=== PATIENT | female | born 1960 | race Caucasian/White ===

== ENCOUNTER → 2016-08-06 | Outpatient (CLI) | payer BC ==
[~2016-08-06] MED LIST: ASP81TEC PO; CALC-794 PO; CHOL20003 PO; CYAN500T52 SL; DCS100C PO; FURO-125 PO; HYDR-34 PO; IBP600T1 PO; MELO-198 PO; METO-272 PO; MTP25TSR PO; OMG1KC PO; POTA10TA PO; PRAV40TA2 PO
--- OUTSIDE RECORDS SUMMARY | 2016-08-06 11:50 | XMS REPORT | Continuity of Care Document ---
Author Author [facility] Organization [facility] Address Unknown Phone Unavailable Care Team Providers Care Counter Cutter Name Role Phone Darlene Ramirez PCP [phone] Source Comments Some departments are not documenting in the electronic medical record. If you do not see the information that you expected, contact Release of Information in the Health Information Management department at [phone] for further assistance in locating additional records.[facility] Active Allergies and Adverse Reactions No Known Allergies Current Medications Prescription Sig. Disp. Refills Start End Date Status Date meloxicam(+) (MOBIC) 15 Take 15 mg by mouth Active mg tablet daily. Indications: 15mg one day, 7.5mg the following day aspirin EC 81 mg tablet Take 81 mg by mouth at Active bedtime daily. calcium carbonate/vitamin Take 1 Tab by mouth Active D-3 (OSCAL-500+D) 1250 daily. Calcium Carb mg/200 unit tablet 1250mg delivers 500mg elemental Ca senna/docusate 1 Tab twice daily. 60 Tab 3 08/01/19 Active (SENOKOT-S) 8.6/50 mg 14 tablet metoprolol XL (TOPROL XL) Take 25 mg by mouth Active 25 mg tablet daily. ERGOCALCIFEROL (VITAMIN Take by mouth. Active D2) (VITAMIN D PO) cyanocobalamin(+) Take 3,000 mcg by mouth Active (VITAMIN B-12) 100 mcg every other day as tablet needed. fish oil /omega-3 fatty Take 1 Cap by mouth Active acids (SEA-OMEGA) daily. 340/1000 mg capsule pravastatin (PRAVACHOL) Take 40 mg by mouth at Active 40 mg tablet bedtime daily. Active Problems Problem Noted Date Ovarian cancer (HCC) 07/28/2013 Overview: Ms. 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 1. The patient initially identified with a left adnexal complex cyst measuring about 4 cm and was recommended to have a repeat ultrasound. She did not follow up for some time but finally underwent repeat ultrasound in April 2013, which indicated that the adnexal mass had increased in size to a maximum diameter of 6 cm. 2. She underwent a laparoscopic hysterectomy and bilateral salpingo-oophorectomy on May 28, 2013. 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 The pelvic washings were also obtained at the time of surgery and showed involvement by a serous borderline tumor. The patient was then referred to [place]. 3. On July 28, 2013, the patient underwent an exploratory laparotomy, extensive lysis of adhesions, radical peritonectomy involving removal of the peritoneum representing left and right pelvic sidewalls as well as the anterior rectal serosa, bilateral periaortic lymphadenectomy, omentectomy, and additional biopsies to complete staging. At that time, Dr. Barlow performed a ventral hernia repair and Meckel's diverticulectomy. Pathology revealed no residual malignancy. Seven lymph nodes were sampled, all of which were negative. 4. The patient returns today, 07/25/2016 Now just over 3 years CAPRI. She was last seen in 06/2015, and now presents for her yearly continued surveillance. Last CA-125 on 07/25/2015=10 , according to pt CA 125 was normal in march Last Mammogram 04/2014: Normal per pt Last Colonoscopy Spring 2013: Small polyp found FH/O mother had gynecological cancer, PGM had breast cancer, cousin had endometrial L ast Assessment & Plan: She is clinically CAPRI; now at 3 years from surgery. PLAN: RV q 12 months with CA125. Genetic testing? Her pgm had/has breast cancer After 5 years, have follow up with Dr. Rivera only. Alternating visits currently. Most Recent Encounters Date Type Specialty Providers Description 07/31/2016 Telephone Oncology Maksim Bazzi, [facility] [place] Appointment Request 07/25/2016 Office Visit Oncology Jossy Boggs MD Ovarian cancer, unspecified laterality (Primary Dx) 07/25/2016 Orders Only Oncology Jossy Boggs MD Malignant neoplasm of ovary, unspecified laterality (Primary Dx) Social History Tobacco Use Types Packs/Day Years Used Date Former Smoker Cigarettes 1.5 13.5 Quit: 06/30/1998 Smokeless Tobacco: Never Used Alcohol Use Drinks/Week oz/Week Comments Yes 1-2 drinks/month Last Filed Vital Signs Vital Sign Reading Time Taken Blood Pressure 179/89 07/25/2016 12:12 PM RADIOLOGIC TECHNICIAN Pulse 66 07/25/2016 12:12 PM RADIOLOGIC TECHNICIAN Temperature 36.7 C (98 F) 07/25/2016 12:12 PM RADIOLOGIC TECHNICIAN Respiratory Rate 16 07/25/2016 12:12 PM RADIOLOGIC TECHNICIAN Height 1.6 m (5' 2.99") 07/25/2016 12:12 PM RADIOLOGIC TECHNICIAN Weight 104.599 kg (230 lb 9.6 07/25/2016 12:12 PM RADIOLOGIC TECHNICIAN oz) Body Mass Index 40.86 07/25/2016 12:12 PM RADIOLOGIC TECHNICIAN Oxygen Saturation 94% 07/25/2016 12:12 PM RADIOLOGIC TECHNICIAN Plan of Care Date Type Specialty Providers Description 11/07/2016 Appointment Oncology Jovita rGegory, MS [facility] [address] [place] [address] [phone] (Fax) 11/07/2016 Appointment Oncology 12/10/2016 Appointment Oncology Jovita Gregory, MS [facility] [address] [place] [address] [phone] (Fax) 07/24/2017 Appointment Oncology 07/24/2017 Appointment Oncology Bhakti Finnegan APRN [address] [place] [address] [phone] (Fax) Health Maintenance Due Date Last Done Comments Hepatitis C Screening 1960 Physical (Comprehensive) 09/01/1967 Exam Pertussis Vaccine 09/01/1971 Tetanus Vaccine 1977 Cervical Cancer Screening 1981 Breast Cancer Screening 2000 Colorectal Cancer 2010 Screening Influenza Vaccine 02/29/2016 Results from Last 3 Months CA125 (07/25/2016 11:10 AM) Component Value Range CA-125 10 <35 U/ml Specimen Blood
--- NOTE | 2016-08-09 07:03 | ECHOCARDIOGRAPHY REPORT ---
PROCEDURE PHYSICIAN: KRISTINA CARDOZO DATE OF PROCEDURE: 08/06/2016 TWO DIMENSIONAL ECHOCARDIOGRAM REPORT PRIMARY PHYSICIAN: Dr. Ramirez OTHER PHYSICIAN: REFERRING PHYSICIAN: ORDERING PHYSICIAN: Dr. Ramirez INDICATION FOR THE PROCEDURE: Cardiac murmur, hypertension MEASUREMENTS DERIVED VALUES LV DIAMETER (LAX) NORMALS NORMALS Diastolic 5.4 (3.6-5.2) Eject. Fract. (60%+/-6%) Systolic (2.3-3.9) Diastolic Vol. % Shortening (0.22-0.42) Systolic Vol. Aortic Root 2.8 IVS THICKNESS Diastolic 1.1 (0.6-1.1) LVPW THICKNESS Diastolic (0.6-1.1) LA DIAMETER Systolic 5.5 (2.1-3.7) DESCRIPTION: 2-dimension echocardiography shows normal global left systolic function with normal regional wall motion. Aortic, mitral and tricuspid valve leaflets show good leaflet excursion. There appears to be moderate prolapse of the posterior mitral leaflet. 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 Doppler imaging shows mild tricuspid. There is an eccentric jet of moderate to severe mitral regurgitation. There is no Doppler evidence of significant valvular stenosis. Pulmonary artery systolic pressure is estimated to be approximately 25 to 30 mmHg. There is no evidence of significant intracardiac shunt on this transthoracic echocardiographic study. Inferior vena cava is of normal size and exhibits inspiratory collapse. CONCLUSION: 1. 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 2. Mild enlargement of the left ventricle. 3. Moderate to severe enlargement of the left atrium. 4. No evidence of significant valvular stenosis. 5. Pulmonary artery systolic pressure is estimated to be 25 to 30 mmHg. 6. Job ID: [id number] Dictated Date: 08/08/2016 11:15:53 Marine Engineering Professor Date: 08/09/2016 06:53:56 / rhonda
== END ==
LOC: CARD 11:47
PROVIDERS: ATTEND Family Medicine
DX: I10 Essential (primary) hypertension (principal); R01.1 Cardiac murmur, unspecified
CPT/HCPCS: 93306

== ENCOUNTER 2016-08-16 02:49 | Observation (INO) | payer BC ==
[~2016-08-16] VITALS: Ht 162.6 cm; Wt 101.6 kg
[~2016-08-16 02:49] MED LIST changes: -CHOL20003 PO; -CYAN500T52 SL; -FURO-125 PO; -METO-272 PO; -POTA10TA PO; -PRAV40TA2 PO
--- OUTSIDE RECORDS SUMMARY | 2016-08-16 02:56 | XMS REPORT | Continuity of Care Document ---
Author Author [facility] Organization [facility] Address Unknown Phone Unavailable Care Team Providers Care Commercial Trailer Truck Driver Name Role Phone Darlene Ramirez PCP [phone] Source Comments Some departments are not documenting in the electronic medical record. If you do not see the information that you expected, contact Release of Information in the Health Information Management department at [phone] for further assistance in locating additional records.[facility] Active Allergies and Adverse Reactions No Known [...] tumor. The patient was then referred to [place] for staging. 3. On July 28, 2013, [...] Providers Description 07/31/2016 Telephone Oncology Maksim Bazzi, [facility] [place]oint[place] Request 07/25/2016 Office Visit Oncology Jossy [...] Taken Blood Pressure 179/89 07/25/2016 12:12 PM FARM HELPER Pulse 66 07/25/2016 12:12 PM FARM HELPER Temperature 36.7 C (98 F) 07/25/2016 12:12 PM FARM HELPER Respiratory Rate 16 07/25/2016 12:12 PM FARM HELPER Height 1.6 m (5' 2.99") 07/25/2016 12:12 PM FARM HELPER Weight 104.599 kg (230 lb 9.6 07/25/2016 12:12 PM FARM HELPER oz) Body Mass Index 40.86 07/25/2016 12:12 PM FARM HELPER Oxygen Saturation 94% 07/25/2016 12:12 PM FARM HELPER Plan of Care Date Type Specialty Providers Description 11/07/2016 Appointment Oncology Jovita Gregory, MS [facility] [address] [place] [address] [phone] (Fax) 11/07/2016 Appointment Oncology 12/10/2016 Appointment Oncology Jovita Gregory, MS [facility] [address] [place] [address] [phone] (Fax) 07/24/2017 Appointment Oncology 07/24/2017 Appointment Oncology Bhakti Finnegan APRN [address] [place] [address] [phone] (Fax) Health Maintenance Due Date Last Done Comments Hepatitis C Screening 1960 Physical (Comprehensive) 09/01/1967 Exam Pertussis Vaccine 09/01/1971 Tetanus Vaccine 1977 Cervical Cancer Screening 1981 Breast Cancer Screening 2000 Colorectal Cancer 2010 Screening Influenza Vaccine 02/29/2016 Results from Last 3 Months CA125 (07/25/2016 11:10 AM) Component Value Range CA-125 10 <35 U/ml Specimen Blood
[2016-08-16] MEDS ORDERED: ASPIRIN 81 MG CHEW (CHILDREN'S ASA) PO ONE (03:00)
[2016-08-16] MEDS ORDERED: RX-NITROGLYCERIN 0.4 MG TAB BTL 25'S SL PRN (03:00)
[2016-08-16 03:10] LABS: BASOPHILS % (AUTO) 1 % (0-10); EOSINOPHILS # (AUTO) 0.2 10^3/uL (0.0-0.3); EOSINOPHILS % (AUTO) 3 % (0-10); LYMPHOCYTES # (AUTO) 2.6 X 10^3 (1.0-4.0); LYMPHOCYTES % (AUTO) 43 % (12-44); MEAN CORPUSCULAR HEMOGLOBIN 31 PG (25-34); MEAN CORPUSCULAR HGB CONC 35 G/DL (32-36); MEAN CORPUSCULAR VOLUME 91 FL (80-99); MEAN PLATELET VOLUME 8.9 FL (7.4-10.4); MONOCYTES # (AUTO) 0.7 X 10^3 (0.0-1.0); MONOCYTES % (AUTO) 12 % (0-12); NEUTROPHILS # (AUTO) 2.6 X 10^3 (1.8-7.8); NEUTROPHILS % (AUTO) 42 % (42-75); PLATELET COUNT 243 10^3/uL (130-400); RED BLOOD COUNT 4.83 10^6/uL (4.35-5.85); WHITE BLOOD COUNT 6.2 10^3/uL (4.3-11.0)
[2016-08-16 03:30] LABS: INR 0.9 (0.8-1.4); PROTHROMBIN TIME PATIENT 12.3 SEC (12.2-14.7)
[2016-08-16 03:42] LABS: ALANINE AMINOTRANSFERASE 20 U/L (0-55); ALBUMIN 4.3 G/DL (3.2-4.5); AMYLASE 72 U/L (25-125); ANION GAP 11 MMOL/L (5-14); ASPARTATE AMINO TRANSFERASE 23 U/L (5-34); BILIRUBIN,TOTAL 0.3 MG/DL (0.1-1.0); BLOOD UREA NITROGEN 25 MG/DL (7-18); BUN/CREATININE RATIO 33; CARBON DIOXIDE 23 MMOL/L (21-32); CHLORIDE 108 MMOL/L (98-107); CREATINE KINASE 80 U/L (29-168); CREATININE SERUM 0.76 MG/DL (0.60-1.30); GFR ESTIMATED > 60; GLUCOSE 98 MG/DL (70-105); LIPASE 85 U/L (8-78); MAGNESIUM 2.4 MG/DL (1.8-2.4); POTASSIUM 3.9 MMOL/L (3.6-5.0); SODIUM 142 MMOL/L (135-145); TOTAL PROTEIN 6.9 G/DL (6.4-8.2)
[2016-08-16 03:50] LABS: TROPONIN I < 0.30 NG/ML (<0.30)
[2016-08-16] MEDS ORDERED: NS 100 ML (IVPB) BAG IV ONE (04:45)
[2016-08-16] MEDS ORDERED: IOHEXOL 350 MG/ML 150 ML (OMNIPAQUE 350) VIAL IV ONE (04:45)
--- NOTE | 2016-08-16 05:23 | ED Chest Pain ---
General Chief Complaint: Chest Pain Stated Complaint: CHEST TIGHTNESS,ACID REFLUX,CAN'T SLEEP ON SIDE Nursing Triage Note: PT TO ED 6 W/ C/O CHEST PAIN ONSET YESTERDAY, WORSE THIS AM. REPORTS RECENT DX OF MITRAL VALVE REGURGITATION. THINKS PAIN R/T ANXIETY. NO OTHER C/O VOICED AT THIS TIME. Nursing Sepsis Screen: No Definite Risk Source: patient History of Present Illness Time seen by provider: 02:50 Initial Comments PT ARRIVES VIA POV FROM HOME C/O CHEST PAIN/ TIGHTNESS SINCE YESTERDAY STATES PAIN INITIALLY WOULD COME AND GO, BUT HAS BEEN CONSTANT ALL DAY TODAY AND IS WORSE TONIGHT AND CANNOT SLEEP DUE TO PAIN --RATES PAIN 3/10 AT WORST AND IS 2/10 NOW PAIN IS WORSE WITH LAYING FLAT, IMPROVES WITH SITTING OR STANDING NO RADIATION OF PAIN HAS HAD PROGRESSIVE DYSPNEA ON EXERTION FOR THE LAST 2 WEEKS NO SWEATS NO NAUSEA NO SWELLING IN FEET/ANKLES OR PAIN IN CALVES NO PALPITATIONS NO HISTORY OF SIMILAR PT WAS DX WITH MITRAL VALVE REGURGITATION LAST FRIDAY AND METOPROLOL DOSE WAS INCREASED LAST WEEK. HAS BEEN REFERRED TO DR. CARDOZO AND HAS AN APPOINTMENT WITH HIM NEXT FRIDAY PCP: DR. PABLO Allergies and Home Medications Allergies Coded Allergies: No Known Drug Allergies (Unverified , 02/08/11) Home Medications Aspirin 81 Mg Tabec 81 MG PO DAILY (Reported) Calcium Carb & Cit/Vitamin D3 1 Each Tablet.er 1 EACH PO DAILY (Reported) Meloxicam 7.5 Mg Tablet 1 EACH PO DAILY (Reported) Metoprolol Succinate 25 Mg Tab 25 MG PO DAILY (Reported) Ambler 3 Polyunsat Fatty Acids 1,000 Mg Cap 1,000 MG PO DAILY (Reported) Review of Systems Constitutional: no symptoms reported EENTM: No Symptoms Reported Respiratory: See HPI SOA With Exertion Cardiovascular: See HPI Chest PainDenies Edema, Denies Irregular Heart Rate, Denies Lightheadedness, Denies Palpitations, Denies Syncope Gastrointestinal: No Symptoms Reported Genitourinary: No Symptoms Reported Musculoskeletal: no symptoms reported Skin: no symptoms reported Psychiatric/Neurological: No Symptoms Reported Endocrine: No Symptoms Reported Hematologic/Lymphatic: No Symptoms Reported Past Dqibktm-Awsxrb-Tbwaij Hx Patient Social History Alcohol Use: Occasionally Uses Recreational Drug Use: No Smoking Status: Former Smoker Former Smoker/When Quit: October 28, 1998 Recent Foreign Travel: No Contact w/Someone Who Travel: No Recent Infectious Disease Expo: No Recent Hopitalizations: No Immunizations Up To Date Date of Influenza Vaccine: May 14, 2013 Surgeries HX Surgeries: Yes (ADRENAL MASS, HYST/BSO FOR OVARIAN CANCER) Surgeries: Hysterectomy, Oophorectomy Respiratory Hx Respiratory Disorders: No Cardiovascular Hx Cardiac Disorders: Yes (MITRAL VALVE REGURGITATION) Cardiac Disorders: Hypertension, Valvular Heart Disease Neurological Hx Neurological Disorders: No Reproductive System Hx Reproductive Disorders: Yes (ADRENAL MASS, ENDOMETRIAL HYPERTROPHY; OVARIAN CANCER) Genitourinary Hx Genitourinary Disorders: Yes Genitourinary Disorders: Bladder Infection Gastrointestinal Hx Gastrointestinal Disorders: No Musculoskeletal Hx Musculoskeletal Disorders: Yes (BACK PAIN) Musculoskeletal Disorders: Chronic Back Pain Endocrine Hx Endocrine Disorders: No HEENT HX ENT Disorders: No Cancer Hx Cancer: Yes (OVARIAN CANCER DX 04/2013--S/P SURGERY ONLY. NO CHEMO 0R RADIATION) Cancer: Ovarian Psychosocial Hx Psychiatric Problems: No Integumentary HX Skin/Integumentary Disorder: No Blood Transfusions Hx Blood Disorders: No Family Medical History Family Medial History: Congestive heart failure 03 FATHER Family history: Glaucoma 03 FATHER Family history: Hypertension 03 MOTHER History of - respiratory disease 03 FATHER Stroke 03 FATHER Physical Exam Vital Signs Vital Sign - Last 12Hours 08/16/16 02:51 Temp 96.8 Pulse 75 Resp 20 B/P 152/103 Pulse Ox 95 O2 Delivery Room Air Capillary Refill : Less Than 3 Seconds General Appearance: No Apparent Distress WD/WN Neck: Full Range of Motion Normal Inspection Non Tender SuppleNo Carotid Bruit , No JVD Respiratory: Chest Non Tender Normal Breath Sounds No Accessory Muscle Use No Respiratory Distress Cardiovascular: Regular Rate, Rhythm No Edema No JVD No Murmur Normal Peripheral Pulses Gastrointestinal: Normal Bowel Sounds No Organomegaly No Pulsatile Mass Non Tender Soft Extremity: Normal Capillary Refill Normal Inspection Normal Range of Motion Non Tender No Calf Tenderness No Pedal Edema Neurologic/Psychiatric: Alert Oriented x3 No Motor/Sensory Deficits Normal 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-XII Norm as Tested Skin: Normal Color Warm/Dry Progress/Results/Core Measures Results/Orders Lab Results Laboratory Tests Test 08/16/16 03:05 Range/Units Activated Partial Thromboplast Time 32 24-35 SEC Alanine Aminotransferase (ALT/SGPT) 20 0-55 U/L Albumin 4.3 3.2-4.5 G/DL Alkaline Phosphatase 116 40-136 U/L Amylase Level 72 25-125 U/L Anion Gap 11 5-14 MMOL/L Aspartate Amino Transf (AST/SGOT) 23 5-34 U/L B-Type Natriuretic Peptide 63.5 <100.0 PG/ML BUN/Creatinine Ratio 33 Basophils # (Auto) 0.0 0.0-0.1 10^3/uL Basophils (%) (Auto) 1 0-10 % Blood Urea Nitrogen 25 H 7-18 MG/DL Calcium Level 9.0 8.5-10.1 MG/DL Carbon Dioxide Level 23 21-32 MMOL/L Chloride Level 108 H 98-107 MMOL/L Creatine Kinase MB 1.5 <6.6 NG/ML Creatinine 0.76 0.60-1.30 MG/DL Eosinophils # (Auto) 0.2 0.0-0.3 10^3/uL Eosinophils (%) (Auto) 3 0-10 % Estimat Glomerular Filtration Rate > 60 Glucose Level 98 70-105 MG/DL Hematocrit 44 35-52 % Hemoglobin 15.1 11.5-16.0 G/DL INR Comment 0.9 0.8-1.4 Lipase 85 H 8-78 U/L Lymphocytes # (Auto) 2.6 1.0-4.0 X 10^3 Lymphocytes (%) (Auto) 43 12-44 % Magnesium Level 2.4 1.8-2.4 MG/DL Mean Corpuscular Hemoglobin 31 25-34 PG Mean Corpuscular Hemoglobin Concent 35 32-36 G/DL Mean Corpuscular Volume 91 80-99 FL Mean Platelet Volume 8.9 7.4-10.4 FL Monocytes # (Auto) 0.7 0.0-1.0 X 10^3 Monocytes (%) (Auto) 12 0-12 % Neutrophils # (Auto) 2.6 1.8-7.8 X 10^3 Neutrophils (%) (Auto) 42 42-75 % Platelet Count 243 130-400 10^3/uL Potassium Level 3.9 3.6-5.0 MMOL/L Prothrombin Time 12.3 12.2-14.7 SEC Red Blood Count 4.83 4.35-5.85 10^6/uL Red Cell Distribution Width 13.0 10.0-14.5 % Sodium Level 142 135-145 MMOL/L Total Bilirubin 0.3 0.1-1.0 MG/DL Total Creatine Kinase 80 29-168 U/L Total Protein 6.9 6.4-8.2 G/DL Troponin I < 0.30 <0.30 NG/ML White Blood Count 6.2 4.3-11.0 10^3/uL My Orders Orders-PEEWEECARLIE Adrianna DO Amylase (08/16/16 02:54) Cbc With Automated Diff (08/16/16 02:54) Comprehensive Metabolic Panel (08/16/16 02:54) Creatine Kinase (08/16/16 02:54) Creatine Kinase Mb (08/16/16 02:54) Lipase (08/16/16 02:54) Partial Thromboplastin Time (08/16/16 02:54) Protime With Inr (08/16/16 02:54) Troponin I (08/16/16 02:54) Chest 1 View, Ap/Pa Only (08/16/16 02:54) O2 (08/16/16 02:54) Ekg Tracing (08/16/16 02:54) Aspirin Chewable Tablet (Baby Aspirin Ch (08/16/16 03:00) Rx-Nitroglycerin Sl Tabs (Rx-Nitrostat S (08/16/16 03:00) BNP (08/16/16 02:54) Monitor-Rhythm Ecg Trace Only (08/16/16 02:54) Magnesium (08/16/16 02:54) Ct Angio Chest W (08/16/16 04:16) Iohexol Injection (Omnipaque 350 Mg/Ml 1 (08/16/16 04:45) Ns (Ivpb) (Sodium Chloride 0.9% Ivpb Bag (08/16/16 04:45) Medications Given in ED Current Medications Medications Dose Ordered Sig/Preston Route Start Time Stop Time Status Last Admin Dose Admin Aspirin 324 mg ONCE ONCE PO 08/16/16 03:00 08/16/16 03:01 DC 08/16/16 03:23 324 MG Iohexol 150 ml ONCE ONCE IV 08/16/16 04:45 08/16/16 04:46 DC 08/16/16 04:44 125 ML Sodium Chloride 100 ml ONCE ONCE IV 08/16/16 04:45 08/16/16 04:46 DC 08/16/16 04:44 80 ML Vital Signs/I&O Vital Sign - Last 12Hours 08/16/16 02:51 Temp 96.8 Pulse 75 Resp 20 B/P 152/103 Pulse Ox 95 O2 Delivery Room Air Blood Pressure Mean: 119 Progress Note : Progress Note PAIN RELIEVED WITH NTG X 1 ECG Initial ECG Impression Time: 03:01 Initial ECG Rate: 68 Initial ECG Rhythm: Normal Sinus Initial ECG Comparisson: No Previous ECG Available Diagnostic Imaging Comments CXR--NO ACUTE PROCESS, PENDING RADIOLOGIST REVIEW CT CHEST ANGIOGRAM--NO ACUTE PROCESS, PER [facility] VIA FAX @ [phone] Reviewed: Reviewed by Me Departure Communication Progress Notes 0505--SPOKE WITH DR. PABLO, ACCEPTS PT FOR ADMIT Impression Impression: Primary Impression: Chest pain Disposition: ADMITTED INPATIENT Condition: Improved Decision to Admit Reason: Admit from ER (General) Decision to Admit/Date: Aug 16, 2016 Time/Decision to Admit Time: 05:05 Departure-Patient Inst. Referrals: LAVON PABLO DO (PCP/Family) Primary Care Physician CARLIE VIDES DO Aug 16, 2016 05:23
[2016-08-16] MEDS ORDERED: NITROGLYCERIN SUBLINGUAL 0.4 MG TAB (NITROSTAT) SL PRN ×2 (06:15)
[2016-08-16] MEDS ORDERED: morphine INJ 10 MG/ML 1ML (SYR OR VIAL) IVP PRN (06:15)
[2016-08-16] MEDS ORDERED: PATIENT MAY USE OWN MEDS, ALL MC SCH (06:15)
[2016-08-16] MEDS ORDERED: CATHETER FLUSH 10 ML SYR IV PRN (06:15)
[2016-08-16] MEDS ORDERED: morphine INJ 4 MG/ML 1 ML (VIAL/SYRINGE) IV PRN (06:15)
--- NOTE | 2016-08-16 06:27 | Diagnostic Imaging Report ---
PROCEDURE: CT angiography of the chest with contrast. TECHNIQUE: Multiple contiguous axial images were obtained through the chest after uneventful bolus administration of intravenous contrast. Reconstructed CTA MIP acquisitions were also performed. INDICATION: Chest pain The lungs are clear. There is no hilar or mediastinal lymphadenopathy. The thoracic aorta is normal. There are no pulmonary emboli. There are no effusions or pneumothoraces. IMPRESSION: Negative CTA chest. I agree with preliminary interpretation. Dictated by: Dictated on workstation # [id number]
--- NOTE | 2016-08-16 06:34 | Diagnostic Imaging Report ---
INDICATION: Chest pain. Portable chest 3:28 AM FINDINGS: Heart size and pulmonary vascularity are normal. Lungs are clear. There are no effusions or pneumothoraces. IMPRESSION: Negative chest. Dictated by: Dictated on workstation # [id number]
[2016-08-16 07:56] VITALS: BP 123/69
[2016-08-16 08:00] VITALS: BP 123/69
[2016-08-16] MEDS ORDERED: CYAN500T52 SL (08:38)
[2016-08-16] MEDS ORDERED: CHOL20003 PO (08:38)
[2016-08-16] MEDS ORDERED: METO-272 PO (08:38)
[2016-08-16] MEDS ORDERED: PRAV40TA2 PO (08:38)
[2016-08-16] MEDS ORDERED: ASPIRIN E.C. 325 MG (ECOTRIN) TABLET PO SCH ×2 (09:00)
[2016-08-16 09:38] LABS: BILIRUBIN,URINE NEGATIVE (NEGATIVE); KETONES,URINE NEGATIVE (NEGATIVE); LEUKOCYTE ESTERASE ,URINE 1+ (NEGATIVE); NITRITE,URINE NEGATIVE (NEGATIVE); PH,URINE 8 (5-9); PROTEIN,URINE NEGATIVE (NEGATIVE); UROBILINOGEN,URINE NORMAL (NORMAL)
[2016-08-16 09:53] LABS: SQUAMOUS EPITHELIAL CELL,UR 0-2 /HPF; WBC,URINE 0-2 /HPF
[2016-08-16 10:14] LABS: MYOGLOBIN SERUM 29.7 NG/ML (10.0-92.0)
--- NOTE | 2016-08-16 10:34 | History & Physicial ---
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 She stated she had substernal chest pressure intermittently since the day before but last night it awakened her from sleep and it was radiating to her left neck. She also reported shortness of air with exertion the last 2 days. She did report possible heartburn symptoms as well and wondered if some of her symptoms were due to anxiety over her recent mitral valve diagnosis. In the emergency room, her EKG showed no acute changes and her cardiac enzymes were negative but her pain did improve with nitro so it was decided to admit her for cardiac evaluation. Date of Admission Aug 16, 2016 at 05:05 I consulted on this patient on 08/16/16 10:28 Attending Physician Darlene Ramirez DO Admitting Physician Darlene Ramirez DO Consult Allergies and Home Medications Allergies Coded Allergies: No Known Drug Allergies (Unverified , 02/08/11) Home Medications Aspirin 81 Mg Tabec 81 MG PO DAILY (Reported) Calcium Carb & Cit/Vitamin D3 1 Each Tablet.er 1 TAB PO DAILY (Reported) Cholecalciferol (Vitamin D3) 2,000 Unit Capsule 2,000 UNIT PO DAILY (Reported) Cyanocobalamin (Vitamin B-12) 500 Mcg Tab.subl 500 MCG SL Q48H (Reported) Meloxicam 7.5 Mg Tablet 7.5 MG PO DAILY (Reported) Metoprolol Succinate 50 Mg Tab.er.24h 50 MG PO DAILY (Reported) Pravastatin Sodium 40 Mg Tablet 40 MG PO DAILY (Reported) Past Hxvvctv-Mptkdm-Hrpzaw Hx Patient Social History Marrital Status: Employed/Student: employed Alcohol Use: Occasionally Uses Recreational Drug Use: No Smoking Status: Former Smoker Former smoker/When Quit: October 28, 1998 Physical Abuse Screen: No Sexual Abuse: No Recent Foreign Travel: No Contact w/other who traveled: No Recent Hopitalizations: No Recent Infectious Disease Expo: No Immunizations Up To Date Date of Influenza Vaccine: May 14, 2016 Seasonal Allergies Seasonal Allergies: No Surgeries HX Surgeries: Yes (ADRENAL MASS, HYST/BSO FOR OVARIAN CANCER) Surgeries: Hysterectomy, Oophorectomy Respiratory Hx Respiratory Disorders: No Cardiovascular Hx Cardiovascular Disorders: Yes (MITRAL VALVE REGURGITATION) Cardiac Disorders: Hypertension, Valvular Heart Disease Neurological Hx Neurological Disorders: No Reproductive System Hx Reproductive Disorders: Yes (ADRENAL MASS, ENDOMETRIAL HYPERTROPHY; OVARIAN CANCER) Genitourinary Hx Genitourinary Disorders: Yes Genitourinary Disorders: Bladder Infection, Kidney Stones Gastrointestinal Hx Gastrointestinal Disorders: No Musculoskeletal Hx Musculoskeletal Disorders: Yes (BACK PAIN) Musculoskeletal Disorders: Degenerate Disk Disease, Chronic Back Pain Endocrine Hx Endocrine Disorders: No HEENT HX ENT Disorders: No Cancer Hx Cancer: Yes (OVARIAN CANCER DX 04/2013--S/P SURGERY ONLY. NO CHEMO 0R RADIATION) Cancer: Ovarian Psychosocial Hx Psychiatric Problems: No Integumentary HX Skin/Integumentary Disorder: No Blood Transfusions Hx Blood Disorders: No Adverse Reaction to a Blood Tr: No Family Medical History Family Hx: Congestive heart failure 03 FATHER Family history: Glaucoma 03 FATHER Family history: Hypertension 03 MOTHER 09 BROTHER History of - respiratory disease 03 FATHER Osteoporosis 03 MOTHER Stroke 03 FATHER Constitutional: weakness EENTM: No blurred vision, No dental problems, No double vision, No ear discharge, No ear pain, No epistaxis, No eye pain, No hearing loss, No hoarseness, No mouth pain, No mouth swelling, No no symptoms reported, No nose congestion, No nose pain, No other, No see HPI, No tearing, No throat pain, No throat swelling, No vision loss Respiratory: dyspnea on exertion Cardiovascular: chest pain Gastrointestinal: heartburn Genitourinary: No no symptoms reported, No see HPI, No decreased output, No discharge, No dysuria, No frequency, No hematuria, No hesitancy, No incontinence , No nocturia, No pain, No other Musculoskeletal: No no symptoms reported, No see HPI, No back pain, No gout, No joint pain, No joint swelling, No muscle pain, No muscle stiffness, No muscle cramps, No muscle twitching, No muscle weakness, No neck pain, No other Skin: No no symptoms reported, No see HPI, No change in color, No change in hair/nails, No dryness, No hx of skin cancer, No lesions, No lumps, No pruritus , No rash, No other Psychiatric/Neurological: Anxiety Physical Exam Vital Signs Vital Sign - Last 12Hours 08/16/16 02:51 Temp 96.8 Pulse 75 Resp 20 B/P 152/103 Pulse Ox 95 O2 Delivery Room Air Capillary Refill : Less Than 3 Seconds General Appearance: No Apparent Distress Neck: Supple Respiratory: Lungs Clear Cardiovascular: Regular Rate, Rhythm Systolic Murmur Gallop/S4 Gastrointestinal: Normal Bowel Sounds Non Tender Soft Rectal: Deferred Back: No CVA Tenderness Extremity: Non Tender No Calf Tenderness No Pedal Edema Neurologic/Psychiatric: Alert Oriented x3 Skin: Normal Color Warm/Dry Lymphatic: No Adenopathy Comments Laboratory Tests 08/16/16 03:05: Activated Partial Thromboplast Time 32, Alanine Aminotransferase (ALT/SGPT) 20, Albumin 4.3, Alkaline Phosphatase 116, Amylase Level 72, Anion Gap 11, Aspartate Amino Transf (AST/SGOT) 23, B-Type Natriuretic Peptide 63.5, BUN/ Creatinine Ratio 33, Basophils # (Auto) 0.0, Basophils (%) (Auto) 1, Blood Urea Nitrogen 25H, Calcium Level 9.0, Carbon Dioxide Level 23, Chloride Level 108H, Creatine Kinase MB 1.5, Creatinine 0.76, Eosinophils # (Auto) 0.2, Eosinophils ( %) (Auto) 3, Estimat Glomerular Filtration Rate > 60, Glucose Level 98, Hematocrit 44, Hemoglobin 15.1, INR Comment 0.9, Lipase 85H, Lymphocytes # (Auto ) 2.6, Lymphocytes (%) (Auto) 43, Magnesium Level 2.4, Mean Corpuscular Hemoglobin 31, Mean Corpuscular Hemoglobin Concent 35, Mean Corpuscular Volume 91, Mean Platelet Volume 8.9, Monocytes # (Auto) 0.7, Monocytes (%) (Auto) 12, Neutrophils # (Auto) 2.6, Neutrophils (%) (Auto) 42, Platelet Count 243, Potassium Level 3.9, Prothrombin Time 12.3, Red Blood Count 4.83, Red Cell Distribution Width 13.0, Sodium Level 142, Total Bilirubin 0.3, Total Creatine Kinase 80, Total Protein 6.9, Troponin I < 0.30, White Blood Count 6.2 08/16/16 09:15: Troponin I < 0.30, Myoglobin 29.7, Thyroid Stimulating Hormone (TSH) 1.60 08/16/16 09:25: Urine Bacteria NEGATIVE, Urine Bilirubin NEGATIVE, Urine Casts NONE, Urine Clarity CLEAR, Urine Color YELLOW, Urine Crystals NONE, Urine Culture Indicated NO, Urine Glucose (UA) NEGATIVE, Urine Ketones NEGATIVE, Urine Leukocyte Esterase 1+H, Urine Mucus NEGATIVE, Urine Nitrite NEGATIVE, Urine Protein NEGATIVE, Urine RBC 0-2, Urine RBC (Auto) 1+H, Urine Specific [place] 1.010L, Urine Squamous Epithelial Cells 0-2, Urine Urobilinogen NORMAL, Urine WBC 0-2, Urine pH 8 Assessment/Plan Assessment and Plan 1. Chest Pain, uncertain etiology, relieved by Nitro--consult cardiology, cover with protonix for GI etiology 2. Hypertension--restart toprol 3. MVP with Moderate Mitral Regurgitation--restart Toprol Clinical Quality Measures AMI/AHF: ASA po Prior to arrival: No DVT/VTE Risk/Contraindication: Risk Factor Score Per Nursin RFS Level Per Nursing on Admit: 2=Moderate DARLENE RAMIREZ DO Aug 16, 2016 10:34
[2016-08-16] MEDS ORDERED: PANTOPRAZOLE 40 MG/10 ML (PROTONIX) VIAL IV NR (10:45)
[2016-08-16 11:19] LABS: CHOLESTEROL 193 MG/DL (< 200); DIRECT LDL 120 MG/DL (1-129); TRIGLYCERIDES 142 MG/DL (<150); VLDL CHOLESTEROL 28 MG/DL (5-40)
[2016-08-16 12:00] VITALS: BP 116/70
[2016-08-16] MEDS ORDERED: meTOproloL SUCCINATE 50 MG (TOPROL XL) TAB PO SCH (13:15)
--- NOTE | 2016-08-16 13:33 | Consultation-Cardiology ---
HPI-Cardiology Cardiology Consultation: Date of Consultation 08/16/16 Date of Admission 08/15/16 Attending Physician Darlene Ramirez DO Admitting Physician Darlene Ramirez DO Consulting Physician KRISTINA CARDOZO MD, FACP, FACC, [facility] [place], CCDS HPI: Chief Complaint: Chest discomfort 55 yo woman admitted with chest discomfort off and for a week, mid sternal, mild , dull, without radiation, without aggravating or relieving factors, lasting up to several hours, a few times a week. Sometimes the discomfort is associated with a feeling of palpitations. Last night's episode was more intense than usual and it scared her. She also felt pounding in the neck, worse when she would try to lie on one side or the other. She has pounding in the neck and chest independent of chest discomfort. This may last from a second to a min or two. She has had these intermittent palpitations for several years. She does report exertional shortness of breath, mod, but slowly progressive. She denies syncope. She denies leg swelling Review of Systems-Cardiology Review of Systems Constitutional: No weight loss, No weight gain Eyes: No vision change Ears/Nose/Throat: No ear discharge, No nasal drainage, No recent hearing loss Respiratory: As described under HPI Cardiovascular: As described under HPI Gastrointestinal: No constipation, No nausea, No vomiting Genitourinary: No dysuria, No hematuria Musculoskeletal: back pain (chronic) joint pain (chronic knee pain) Skin: No rash, No ulcerations Psychiatric/Neurological: No focal weakness, No seizure, No syncope Hematologic: No bleeding abnormalities BPF-Omrgnn-Rqwbai Hx Patient Social History Marrital Status: Employed/Student: employed Alcohol Use: Occasionally Uses Recreational Drug Use: No Smoking Status: Former Smoker Former smoker/When Quit: October 28, 1998 Recent Foreign Travel: No Recent Infectious Disease Expo: No Hospitalization with Isolation: Denies Physical Abuse Screen: No Sexual Abuse: No Immunizations Up To Date Date of Influenza Vaccine: May 14, 2016 Past Medical History PMH As described under Assessment. Family Medical History Family History: Congestive heart failure 03 FATHER Family history: Glaucoma 03 FATHER Family history: Hypertension 03 MOTHER 09 BROTHER History of - respiratory disease 03 FATHER Osteoporosis 03 MOTHER Stroke 03 FATHER Allergies and Home Medications Allergies Coded Allergies: No Known Drug Allergies (Unverified , 02/08/11) Home Medications Aspirin 81 Mg Tabec 81 MG PO DAILY (Reported) Calcium Carb & Cit/Vitamin D3 1 Each Tablet.er 1 TAB PO DAILY (Reported) Cholecalciferol (Vitamin D3) 2,000 Unit Capsule 2,000 UNIT PO DAILY (Reported) Cyanocobalamin (Vitamin B-12) 500 Mcg Tab.subl 500 MCG SL Q48H (Reported) Meloxicam 7.5 Mg Tablet 7.5 MG PO DAILY (Reported) Metoprolol Succinate 50 Mg Tab.er.24h 50 MG PO DAILY (Reported) Pravastatin Sodium 40 Mg Tablet 40 MG PO DAILY (Reported) Physical Exam-Cardiology Physical Exam Vital Signs/I&O Vital Sign - Last 12Hours 08/16/16 08/16/16 08/16/16 08/16/16 02:51 05:45 06:00 07:56 Temp 96.8 96.2 Pulse 75 62 62 Resp 20 18 18 B/P 152/103 123/69 Pulse Ox 95 96 97 98 O2 Delivery Room Air Room Air 08/16/16 08/16/16 08/16/16 08/16/16 08:00 10:00 12:00 13:00 Temp 96.2 97.1 Pulse 62 62 61 Resp 18 18 B/P 123/69 116/70 Pulse Ox 98 98 96 O2 Delivery Room Air Capillary Refill : Less Than 3 Seconds Constitutional: AAO x 3 well-developed well-nourished HEENT: PERRL EOMINo xanthelasmas are seen Neck: No carotid bruit, carotid pulses are 2 + bilaterally with good upstrokes Respiratory: No accessory muscle use, lungs clear to percussion lungs clear to auscultation Cardiovascular: regular rate-rhythm S1 and S2 systolic murmur (late-peaking systolic murmur heard best over the mitral area) click (systolic click) Gastrointestinal: No tender, No soft, No guarding, audible bowel sounds Extremities: No clubbing, No cyanosis, No significant edema Neurologic/Psychiatric: oriented x 3 grossly intact power is 5/5 both on sides Skin: No rash on exposed areas, No ulcerations on exposed areas Data Review Labs Laboratory Tests 08/16/16 03:05: Activated Partial Thromboplast Time 32, Alanine Aminotransferase (ALT/SGPT) 20, Albumin 4.3, Alkaline Phosphatase 116, Amylase Level 72, Anion Gap 11, Aspartate Amino Transf (AST/SGOT) 23, B-Type Natriuretic Peptide 63.5, BUN/ Creatinine Ratio 33, Basophils # (Auto) 0.0, Basophils (%) (Auto) 1, Blood Urea Nitrogen 25H, Calcium Level 9.0, Carbon Dioxide Level 23, Chloride Level 108H, Creatine Kinase MB 1.5, Creatinine 0.76, Eosinophils # (Auto) 0.2, Eosinophils ( %) (Auto) 3, Estimat Glomerular Filtration Rate > 60, Glucose Level 98, Hematocrit 44, Hemoglobin 15.1, INR Comment 0.9, Lipase 85H, Lymphocytes # (Auto ) 2.6, Lymphocytes (%) (Auto) 43, Magnesium Level 2.4, Mean Corpuscular Hemoglobin 31, Mean Corpuscular Hemoglobin Concent 35, Mean Corpuscular Volume 91, Mean Platelet Volume 8.9, Monocytes # (Auto) 0.7, Monocytes (%) (Auto) 12, Neutrophils # (Auto) 2.6, Neutrophils (%) (Auto) 42, Platelet Count 243, Potassium Level 3.9, Prothrombin Time 12.3, Red Blood Count 4.83, Red Cell Distribution Width 13.0, Sodium Level 142, Total Bilirubin 0.3, Total Creatine Kinase 80, Total Protein 6.9, Troponin I < 0.30, White Blood Count 6.2 08/16/16 09:15: Troponin I < 0.30, Cholesterol Level 193, HDL Cholesterol 53, LDL Cholesterol Direct 120, Myoglobin 29.7, Thyroid Stimulating Hormone (TSH) 1.60, Triglycerides Level 142, VLDL Cholesterol 28 08/16/16 09:25: Urine Bacteria NEGATIVE, Urine Bilirubin NEGATIVE, Urine Casts NONE, Urine Clarity CLEAR, Urine Color YELLOW, Urine Crystals NONE, Urine Culture Indicated NO, Urine Glucose (UA) NEGATIVE, Urine Ketones NEGATIVE, Urine Leukocyte Esterase 1+H, Urine Mucus NEGATIVE, Urine Nitrite NEGATIVE, Urine Protein NEGATIVE, Urine RBC 0-2, Urine RBC (Auto) 1+H, Urine Specific [place] 1.010L, Urine Squamous Epithelial Cells 0-2, Urine Urobilinogen NORMAL, Urine WBC 0-2, Urine pH 8 Laboratory Tests 08/16/16 03:05 ECG Impression ECG Comment ECG on 08/16/16: NSR without evidence of acute ischemia or infarction A/P-Cardiology Assessment/Admission Diagnosis Chest discomfort, nonspecific, without evidence of ACS Palpitations of undetermined etiology, no significant arrhythmia during this hosp Posterrior MVP with mod to severe MR on echo of which also showed mod to severe LA enlargement, mild LV enlargement, LVEF >60%, PASP 25-30 mmHg Quit smoking in 1998 S/p hysterectomy and bilat oophorectomy for ovarian CA in Jun 2013 Obesity with BMI approx 38 Discussion and Recomendations Continue current regimen of beta-elmo and aspirin Have advised outpatient continuous ambulatory monitoring for eval of palpitations We recommend card cath in prep for eventual MV repair. This can be undertaken as an outpatient We recommend outpatient f/u We have advised her to continue to refrain from tobacco use Clinical Quality Measures AMI/AHF: ASA po Prior to arrival: No DVT/VTE Risk/Contraindication: Risk Factor Score Per Nursin RFS Level Per Nursing on Admit: 2=Moderate KRISTINA CARDOZO MD FACP FACC CCDS Aug 16, 2016 13:33
[2016-08-16] MEDS ORDERED: CATHETER FLUSH 10 ML SYR IV SCH (14:00)
[2016-08-16 15:11] VITALS: BP 116/70
[2016-08-16] MEDS ORDERED: SIMvastatin 20 MG (ZOCOR) TAB PO SCH (21:00)
[2016-08-17] MEDS ORDERED: meTOproloL SUCCINATE 50 MG (TOPROL XL) TAB PO SCH (09:00)
--- NOTE | 2016-08-30 08:26 | Physician Query-Final Dx ---
SOTO RATLIFF 08/30/16 0826: Final Diagnosis Give Final Diagnosis Please give Final Diagnosis LAVON PABLO DO 09/03/16 2209: Final Diagnosis Give Final Diagnosis 1. Chest Pain with no evidence of ACS 2. Palpitations with no arrhythmia 3. Hypertension 4. MVP with moderate MR 5. History of Ovarian Cancer SOTO RATLIFF Aug 30, 2016 08:26 LAVON PABLO DO Sep 03, 2016 22:09
== END 2016-08-16 14:15 | disposition home or self-care (01) ==
LOC: EDUNIT# 02:49 → ER 02:52 → CSD 05:05 → UNDOADMOB 05:05 → CSD 05:50 → UNDODISOB 15:10
PROVIDERS: ADMIT Family Medicine; ATTEND Family Medicine
DX: R07.9 Chest pain, unspecified (principal); I34.0 Nonrheumatic mitral (valve) insufficiency; I10 Essential (primary) hypertension; R00.2 Palpitations; E66.9 Obesity, unspecified; Z68.38 Body mass index [BMI] 38.0-38.9, adult; Z85.43 Personal history of malignant neoplasm of ovary; Z87.891 Personal history of nicotine dependence; Z79.899 Other long term (current) drug therapy; Z79.82 Long term (current) use of aspirin; Z90.710 Acquired absence of both cervix and uterus
CPT/HCPCS: 36415; 71010; 71275; 80053; 80061; 81000; 82150; 82550; 82553; 83690; 83735; 83874; 83880; 84443; 84484; 85025; 85610; 85730; 93005; 93041; G0378

== ENCOUNTER 2016-09-06 10:58 | Day surgery (SDC) | payer BC ==
[~2016-09-06] VITALS: Ht 162.6 cm; Wt 101.6 kg
[~2016-09-06 10:58] MED LIST changes: +CHOL20003 PO; +CYAN500T52 SL; +METO-272 PO; +PRAV40TA2 PO
[2016-09-06] MEDS ORDERED: NS IV 1000 ML 1,000 ML ONE (11:06)
[2016-09-06] MEDS ORDERED: HEParin (CATH LAB) 2,000 ML IV ONE (11:06)
[2016-09-06] MEDS ORDERED: LIDOCAINE 1% INJ 20 ML (XYLOCAINE) VIAL ONE ×2 (11:06→13:21)
[2016-09-06 11:18] VITALS: BP 153/85
[2016-09-06 11:45] LABS: MEAN PLATELET VOLUME 9.4 FL (7.4-10.4); RED BLOOD COUNT 4.93 10^6/uL (4.35-5.85); WHITE BLOOD COUNT 5.6 10^3/uL (4.3-11.0)
[2016-09-06] MEDS ORDERED: NS IV 1000 ML 1,000 ML IV SCH ×2 (11:45→14:27)
[2016-09-06 11:55] LABS: PROTHROMBIN TIME PATIENT 12.8 SEC (12.2-14.7)
[2016-09-06 12:04] LABS: ALANINE AMINOTRANSFERASE 20 U/L (0-55); ALBUMIN 4.5 G/DL (3.2-4.5); ANION GAP 9 MMOL/L (5-14); ASPARTATE AMINO TRANSFERASE 22 U/L (5-34); BILIRUBIN,TOTAL 0.6 MG/DL (0.1-1.0); BLOOD UREA NITROGEN 25 MG/DL (7-18); BUN/CREATININE RATIO 33; CALCIUM 9.8 MG/DL (8.5-10.1); CARBON DIOXIDE 26 MMOL/L (21-32); CHLORIDE 106 MMOL/L (98-107); CHOLESTEROL 228 MG/DL (< 200); CREATININE SERUM 0.76 MG/DL (0.60-1.30); DIRECT LDL 149 MG/DL (1-129); GFR ESTIMATED > 60; GLUCOSE 94 MG/DL (70-105); POTASSIUM 4.6 MMOL/L (3.6-5.0); SODIUM 141 MMOL/L (135-145); TOTAL PROTEIN 7.3 G/DL (6.4-8.2); TRIGLYCERIDES 164 MG/DL (<150); VLDL CHOLESTEROL 33 MG/DL (5-40)
[2016-09-06] MEDS ORDERED: fentaNYL INJECTION 100 MCG/2 ML AMP ONE (12:56)
[2016-09-06] MEDS ORDERED: MIDAZOLAM 5 MG/5 ML (VERSED) VIAL ONE (12:56)
[2016-09-06] MEDS ORDERED: diphenhydrAMINE 50 MG/ML INJ (BENADRYL) ONE (12:56)
[2016-09-06 14:27] VITALS: BP 133/102
--- NOTE | 2016-09-06 14:27 | Cardiac Procedure Note-CS/ASA ---
Pre-Procedure Note Pre-Op Procedure Note H&P Reviewed The H&P was reviewed, patient examined and no changes noted. Date H&P Reviewed: Sep 06, 2016 Time H&P Reviewed: 13:15 Conscious Sedation Pre-Proced Time Reviewed: 13:15 ASA Class: 3 Airway Mallampati Classification: ([place] appropriate class) I. II. III, IV Lungs Heart ASA score ASA 1: a normal healthy patient ASA 2: a patient with a mild systemic disease (mid diabetes, controlled hypertension, obesity ASA 3: a patient with a severe systemic disease that limits activity (angina , COPD, prior Myocardial infarction) ASA 4: a patient with an incapacitating disease that is a constant threat to life (CHF, renal failure) ASA 5: a moribund patient not expected to survive 24 hrs. (ruptured aneurysm) ASA 6: a declared brain patient whose organs are being harvested. For emergent operations, add the letter E after the classification Grade 2 Sedation Plan: Analgesia, Amnesia, Plan communicated to team members, Discussed options with patient/fam, Discussed risks with patient/fam Note The patient is an appropriate candidate to undergo the planned procedure, sedation, and anesthesia. The patient immediately re-assessed prior to indication. KRISTINA CARDOZO MD FACP FAC [facility] Sep 06, 2016 14:27
[2016-09-06 14:30] VITALS: BP 115/82
[2016-09-06] MEDS ORDERED: PATIENT MAY USE OWN MEDS, ALL PO SCH (14:30)
[2016-09-06] MEDS ORDERED: FURO-125 PO (14:31)
[2016-09-06] MEDS ORDERED: POTA10TA PO (14:31)
--- NOTE | 2016-09-06 14:32 | Discharge Inst-Cardiology ---
Discharge Inst-Cardiac Discharge Medications New Medications: Furosemide (Lasix) 20 Mg Tablet 20 MG PO DAILY #30 Ref 3 TAB Potassium Chloride (K-Tab ER) 10 Meq Tablet.er 10 MEQ PO DAILY #30 Ref 3 TAB Continued Medications: Aspirin (Aspirin Ec 81 Mg) 81 Mg Tabec 81 MG PO DAILY TAB Calcium Carb & Cit/Vitamin D3 (Calcium + D3 Er Tablet) 1 Each Tablet.er 1 TAB PO DAILY TAB Cholecalciferol (Vitamin D3) (Vitamin D3) 2,000 Unit Capsule 2000 UNIT PO DAILY CAP Cyanocobalamin (Vitamin B-12) (Vitamin B-12) 500 Mcg Tab.subl 500 MCG SL Q48H TAB Meloxicam (Meloxicam) 7.5 Mg Tablet 7.5 MG PO DAILY TAB Metoprolol Succinate (Metoprolol Succinate) 50 Mg Tab.er.24h 50 MG PO DAILY TAB Pravastatin Sodium (Pravastatin Sodium) 40 Mg Tablet 40 MG PO DAILY TAB KRISTINA CARDOZO MD FACP FAC [facility] Sep 06, 2016 14:32
--- NOTE | 2016-09-06 14:32 | Discharge Inst-Post CATH ---
Discharge Inst-CATH Post Cardiac Cath D/C Inst Follow Up/Plan F/u with Dr Lockett in 2 weeks CARDIAC CATH DISCHARGE INSTRUCTIONS *Hold Metformin for 48 hours post heart cath. ACTIVITY * Go Home directly and rest. * Limit activity of the leg (or wrist if it was used) for 7 days including aerobics, swimming, jogging, bicycling, etc. * Restrict stair-climbing for 7 days if possible, if not, climb up with your non -cath leg, then bring together on the same step. * Avoid lifting, pushing, pulling or excessive movement of the affected extremity for 7 days. * Customary sexual activity may be resumed after 2 days-use caution not to use a position that strains or causes pain to the affected extremity. * No driving for 24 hours. * NO SMOKING. * Avoid straining for bowel movements for 7 days. * Gentle walking on level ground is allowed. * Returning to work will depend on the type of procedure and the results. Your doctor will discuss this with you. CALL YOUR DOCTOR FOR ANY OF THE FOLLOWING: *If bleeding from the puncture site occurs- Apply gentle pressure to site with clean cloth and call your doctor or EMS. * If a knot or lump forms under the skin, increases in size, or causes pain. * If bruising appears to be worsening or moving further down your leg instead of disappearing. * Temperature above 101 F. CARE OF YOUR GROIN INCISION; * Bruising or purple discoloration of the skin near the puncture site is common. * You may shower only, no bathtub bathing for 5 days. Be careful to avoid slipping as your leg may feel stiff. * If a closure device was used on your femoral artery, please see the attached guide regarding care of the device and your leg. * REMOVE the dressing from your groin the next day after your procedure in the shower. CARE OF YOUR WRIST INCISION; * Bruising or purple discoloration of the skin near the puncture site is common. * You may shower. * DO NOT submerge wrist. * Remove dressing in 24 hours. KRISTINA LOCKETT MD [facility] Sep 06, 2016 14:32
[2016-09-06 15:30] VITALS: BP 108/71
[2016-09-06 16:30] VITALS: BP 117/69
[2016-09-06 17:00] VITALS: BP 123/66
--- NOTE | 2016-09-07 08:16 | CARDIAC CATHETERIZATION ---
PROCEDURE PHYSICIAN: KRISTINA CARDOZO DATE OF PROCEDURE: 09/06/2016 Kenyatta Link is a 56-year-old lady who has post seizure mitral valve prolapse with moderate to severe mitral regurgitation on echocardiography of 08/06/2016 which also showed moderate to severe left atrial enlargement, mild left ventricular enlargement, left ventricular ejection fraction of 55 to 60%, and pulmonary artery systolic pressure of 25 to 30 mmHg. Cardiac catheterization was carried out today in anticipation of valve surgery. She was brought to the cardiac catheterization laboratory after having obtained an informed consent. The right groin was prepared and draped in usual sterile fashion. 1% lidocaine was used for local anesthesia. Modified Seldinger technique was used to advance a 5-[place] sheath in right femoral artery and a 7-[place]ian sheath in the right femoral vein. We used a 7-[place] catheter to carry out right heart catheterization and to measure oxygen saturation in the various right heart chambers. The [place] catheter was then removed. We then used a 5-[place]ian pigtail catheter that was advanced through the arterial sheath and left heart catheterization was performed. This was followed by left ventricular angiography. The pigtail was then pulled back to the aortic arch and aortic arch angiography was performed. We used a 5-[place] JR4 catheter for right coronary angiography and 5-[place] JL4 catheter was used for left coronary angiography. She tolerated the procedure well. At the end of the procedure, angiography of the right femoral artery was carried out through the sheath and Mynx was used to achieve hemostasis. She tolerated the procedure well. HEMODYNAMICS: Pulmonary artery pressure 43/16 with a mean of 24 mmHg. Mean pulmonary wedge pressure 16 mmHg. Right ventricular pressure 47/14. Right atrial mean pressure of 11 mmHg. Cardiac output by thermodilution 5 liters per minute. Cardiac index/thermodilution 2.44 liters per minute per meters squared. Pulmonary vascular resistance 1.6 Wood units. Left ventricular end-diastolic pressure 21 mmHg. No significant pressure gradient on pullback across the aortic valve. Ascending aortic pressure was 130/77 with a mean of 101 mmHg Oxygen saturations: Pulmonary artery 79.4%, right ventricle 79.4%, right atrium 79.5%, inferior vena cava 67.7%, femoral artery 96%. LEFT VENTRICULAR ANGIOGRAPHY: Left ventricular angiography was carried out in the left anterior oblique projection. Global left ventricular systolic function is well preserved. Left ventricular ejection fraction is approximately 55 to 60%. There is 3 to 4+ mitral regurgitation. AORTIC ARCH ANGIOGRAPHY: Aortic arch angiography did not indicate any thoracic aortic aneurysm or dissection. The neck arteries, to the extent seen, do not exhibit significant disease. CORONARY ANGIOGRAM: Left main coronary artery, left circumflex artery, left anterior descending artery, right coronary artery are all angiographically normal. CONCLUSIONS: 1. Moderately severe to severe mitral regurgitation. 2. Well-preserved global left ventricular systolic function with an ejection fraction of approximately 55 to 60%. 3. Angiographically normal coronary arteries. 4. Elevated left ventricular end-diastolic and pulmonary wedge pressures. DISCUSSION AND RECOMMENDATIONS: Based on the results of this study, we are referring for consideration of mitral valve repair for her significant mitral regurgitation that is the result of mitral valve prolapse. Job ID: [id number] Dictated Date: 09/06/2016 14:11:05 Contract Processor Date: 09/07/2016 07:56:50 / rhonda OBRIEN
== END 2016-09-06 17:45 | disposition home or self-care (01) ==
LOC: CATH 10:58 → ICU 14:30 → CATH 17:45
PROVIDERS: ATTEND Internal Medicine Cardiovascular Disease
DX: I34.1 Nonrheumatic mitral (valve) prolapse (principal); I34.0 Nonrheumatic mitral (valve) insufficiency; E66.9 Obesity, unspecified; Z68.38 Body mass index [BMI] 38.0-38.9, adult; Z87.891 Personal history of nicotine dependence; Z79.899 Other long term (current) drug therapy
CPT/HCPCS: 36221; 36415; 80053; 80061; 85027; 85610; 85730; 87081; 93460

== ENCOUNTER → 2017-01-29 | Outpatient (CLI) | payer BC ==
[~2017-01-29] MED LIST changes: +FURO-125 PO; +POTA10TA PO
== END ==
LOC: LAB 18:11
PROVIDERS: ATTEND Family Medicine
DX: R50.9 Fever, unspecified (principal)
CPT/HCPCS: 36415; 87040

== ENCOUNTER 2017-03-19 09:29 | Outpatient (RCR) | payer BC | END 2017-03-19 11:00 | disposition home or self-care (01) | LOC: CR 09:29 | PROVIDERS: ATTEND Thoracic Surgery (Cardiothoracic Vascular Surgery) | DX: Z48.812 Encounter for surgical aftercare following surgery on the circulatory system (principal); Z95.2 Presence of prosthetic heart valve | CPT/HCPCS: 93798 ==

== ENCOUNTER → 2017-05-29 | Outpatient (CLI) | payer BC ==
[~2017-05-29] MED LIST changes: -METO-272 PO; +METO-370 PO
== END ==
LOC: RAD 09:56
PROVIDERS: ATTEND Obstetrics & Gynecology
DX: Z12.31 Encounter for screening mammogram for malignant neoplasm of breast (principal)

== ENCOUNTER → 2017-10-13 | Outpatient (CLI) | payer BC ==
--- NOTE | 2017-10-13 08:57 | Diagnostic Imaging Report ---
INDICATION: Hypertension. TECHNIQUE: Grayscale, color-flow and duplex Doppler evaluation of bilateral kidneys was performed. FINDINGS: The right kidney measures 11.0 x 5.2 x 4.6 cm and the left kidney measures 11.5 x 6.7 x 6.1 cm. The cortical thickness and echogenicity is normal. There is a 16 mm cyst involving the left kidney. No calculi or hydronephrosis is identified. Urinary bladder is unremarkable and demonstrates bilateral ureteral jets. Renal Doppler was performed. The proximal and mid right renal artery cannot be visualized. The distal right renal artery demonstrates normal velocity with normal renal artery to aorta ratio. The left proximal, mid and distal renal arteries show normal velocities. The waveforms are unremarkable. IMPRESSION: Small left renal cyst. Renal ultrasound with renal Doppler is otherwise unremarkable. No definite findings to suggest renal artery stenosis are identified, although the proximal and mid right renal artery was not well visualized on today's study. Dictated by: Dictated on workstation # [id number]
== END ==
LOC: RAD 07:07
PROVIDERS: ATTEND Internal Medicine Cardiovascular Disease
DX: N28.1 Cyst of kidney, acquired (principal); E66.8 Other obesity; Z98.890 Other specified postprocedural states
CPT/HCPCS: 93975

== ENCOUNTER 2017-10-29 07:14 | Outpatient (RCR) | payer BC | END 2017-10-30 | disposition home or self-care (01) | LOC: CR3 07:14 | PROVIDERS: ATTEND Thoracic Surgery (Cardiothoracic Vascular Surgery) | DX: Z29.8 Encounter for other specified prophylactic measures (principal) ==

== ENCOUNTER 2017-11-07 08:23 | Outpatient (RCR) | payer BC | END 2017-11-30 | disposition home or self-care (01) | LOC: CR3 08:23 | PROVIDERS: ATTEND Thoracic Surgery (Cardiothoracic Vascular Surgery) | DX: Z29.8 Encounter for other specified prophylactic measures (principal) ==

== ENCOUNTER 2018-01-14 17:02 | Outpatient (RCR) | payer BC | END 2018-01-25 | disposition home or self-care (01) | LOC: CR3 17:02 | PROVIDERS: ATTEND Thoracic Surgery (Cardiothoracic Vascular Surgery) | DX: Z01.818 Encounter for other preprocedural examination (principal) ==

== ENCOUNTER → 2018-03-05 | Outpatient (CLI) | payer BC | LOC: CARD 09:53 | PROVIDERS: ATTEND Nurse Practitioner Family | DX: I10 Essential (primary) hypertension (principal); Z98.890 Other specified postprocedural states | CPT/HCPCS: 93306 ==

== ENCOUNTER → 2018-06-18 | Outpatient (CLI) | payer BC ==
--- NOTE | 2018-06-18 19:09 | Diagnostic Imaging Report ---
INDICATION: Routine screening. Comparison is made with prior mammogram from 06/03/2017 and 05/30/2016. 2-D and 3-D bilateral screening mammography was performed with a Computer Aided Detection (CAD) system. FINDINGS: Scattered fibroglandular densities are identified bilaterally. Intramammary lymph node upper outer right breast appears stable. No new mass or malignant appearing microcalcifications are seen. The axilla are unremarkable. IMPRESSION: No mammographic features suspicious for malignancy are identified. ACR BI-RADS Category 2: Benign findings. Result letter will be mailed to the patient. Note: At least 10% of breast cancer is not imaged by mammography. Dictated by: Dictated on workstation # [id number]
== END ==
LOC: RAD 14:30
PROVIDERS: ATTEND Obstetrics & Gynecology
DX: Z12.31 Encounter for screening mammogram for malignant neoplasm of breast (principal)
CPT/HCPCS: 77067

== ENCOUNTER → 2018-07-07 | Outpatient (CLI) | payer BC ==
[~2018-07-07] MED LIST changes: +IOHEXOL 350 MG/ML 100 ML (OMNIPAQUE 350) VIAL IV ONE; +NS 100 ML (IVPB) BAG IV ONE; +RECEIVED CONTRAST (Hold Metformin) IV SCH
--- NOTE | 2018-07-07 14:28 | Diagnostic Imaging Report ---
PROCEDURE: CT abdomen and pelvis with contrast. TECHNIQUE: Multiple contiguous axial images were obtained through the abdomen and pelvis after administration of intravenous contrast. INDICATION: Painless hematuria. COMPARISON: Correlation is made with prior CT from 07/22/2014. FINDINGS: The lung bases are clear. No discrete liver mass is identified. The gallbladder is unremarkable. No biliary duct dilatation is seen. The pancreas and spleen are unremarkable. No adrenal mass is identified. Renal calculi evaluation is limited due to absence of precontrast imaging. There is a tiny hyperdensity in the lower pole of the right kidney, suggestive of a tiny 2-3 mm nonobstructing calculus. No definite hydronephrosis is seen. No ureteral calculi are identified. There is an 18 mm low density in the left kidney, similar to prior examination from 2014. The aorta is calcified but nonaneurysmal. No central retroperitoneal or mesenteric lymphadenopathy is seen. Small and large bowel loops are normal caliber. There is no ascites. Partially filled urinary bladder is unremarkable. No pelvic lymphadenopathy is seen. Bony structures are unremarkable. IMPRESSION: 2-3 mm nonobstructing right renal calculus. No other significant abnormality is identified. Dictated by: Dictated on workstation # [id number]
== END ==
LOC: RAD 11:54
PROVIDERS: ATTEND Nurse Practitioner Family
DX: N20.0 Calculus of kidney (principal); Z85.43 Personal history of malignant neoplasm of ovary
CPT/HCPCS: 74177

== ENCOUNTER 2019-02-26 20:44 | Outpatient (CLI) | payer BC ==
[~2019-02-26 20:44] MED LIST changes: -IOHEXOL 350 MG/ML 100 ML (OMNIPAQUE 350) VIAL IV ONE; -NS 100 ML (IVPB) BAG IV ONE; -RECEIVED CONTRAST (Hold Metformin) IV SCH
== END 2019-02-27 06:19 | disposition home or self-care (01) ==
LOC: SLEEP 20:44
PROVIDERS: ATTEND Family Medicine
DX: G47.33 Obstructive sleep apnea (adult) (pediatric) (principal); I10 Essential (primary) hypertension
CPT/HCPCS: 95810

== ENCOUNTER → 2019-06-14 | Outpatient (CLI) | payer BC ==
--- NOTE | 2019-06-14 11:02 | Diagnostic Imaging Report ---
INDICATION: Routine screening. COMPARISON: 06/18/2018 and 06/03/2017. TECHNIQUE: 2D and 3D bilateral screening mammography was performed with CAD. FINDINGS: Scattered fibroglandular densities are identified bilaterally. An intraparenchymal lymph node in the upper-outer right breast is stable. No new mass or malignant appearing microcalcifications are seen. The axillae are unremarkable. IMPRESSION: No mammographic features suspicious for malignancy are identified. ACR BI-RADS Category 2: Benign findings. Result letter will be mailed to the patient. Note: At least 10% of breast cancer is not imaged by mammography. Dictated by: Dictated on workstation # [id number]
== END ==
LOC: RAD 08:54
PROVIDERS: ATTEND Obstetrics & Gynecology
DX: Z12.31 Encounter for screening mammogram for malignant neoplasm of breast (principal)
CPT/HCPCS: 77067

== ENCOUNTER → 2020-11-17 | Outpatient (CLI) | payer BC ==
[~2020-11-17] MED LIST changes: -METO-370 PO; +METO50TA7 PO
--- NOTE | 2020-11-17 17:26 | Diagnostic Imaging Report ---
INDICATION: Routine screening. COMPARISON is made with prior mammograms from 06/14/2019 and 06/18/2018. 2-D and 3-D bilateral screening mammography was performed with CAD. Scattered fibroglandular densities are identified bilaterally. Intraparenchymal lymph node in the upper outer right breast is stable. No spiculated mass or malignant appearing microcalcifications are seen. Axillae are unremarkable. IMPRESSION: BI-RADS Category 2 No mammographic features suspicious for malignancy are identified. ACR BI-RADS Category 2: Benign findings. Result letter will be mailed to the patient. Note: At least 10% of breast cancer is not imaged by mammography. Dictated by: Dictated on workstation # [id number]
== END ==
LOC: RAD 10:17
PROVIDERS: ATTEND Obstetrics & Gynecology
DX: Z12.31 Encounter for screening mammogram for malignant neoplasm of breast (principal)
CPT/HCPCS: 77063; 77067

== ENCOUNTER → 2021-10-23 | Outpatient (CLI) | payer BC | LOC: LABNPT 09:50 | PROVIDERS: ATTEND Obstetrics & Gynecology | DX: D39.10 Neoplasm of uncertain behavior of unspecified ovary (principal) | CPT/HCPCS: 86304 ==

== ENCOUNTER → 2021-11-21 | Outpatient (CLI) | payer BC ==
--- NOTE | 2021-11-21 13:25 | Diagnostic Imaging Report ---
Indication: Routine screening. Comparison is made with prior mammogram 11/17/2020 and 06/14/2019. 2-D and 3-D bilateral screening mammography was performed with CAD. CAD is utilized. The current study was also evaluated with a Computer Aided Detection (CAD) system. Scattered fibroglandular densities are identified bilaterally. Cardiac loop recorder overlies the medial left breast soft tissues. The parenchymal pattern is stable. No spiculated mass or malignant-appearing microcalcifications are seen. Axillae are unremarkable. IMPRESSION: BI-RADS Category 1 No mammographic features suspicious for malignancy are identified. ACR BI-RADS Category 1: Negative. Result letter will be mailed to the patient. Note: At least 10% of breast cancer is not imaged by mammography. Dictated by: Dictated on workstation # [id number]
== END ==
LOC: RAD 08:00
PROVIDERS: ATTEND Obstetrics & Gynecology
DX: Z12.31 Encounter for screening mammogram for malignant neoplasm of breast (principal)
CPT/HCPCS: 77063; 77067

== ENCOUNTER → 2022-02-13 | Outpatient (CLI) | payer BC | LOC: CARD 10:00 | PROVIDERS: ATTEND Internal Medicine Cardiovascular Disease | DX: I51.7 Cardiomegaly (principal); Z98.890 Other specified postprocedural states | CPT/HCPCS: 93306 ==

== ENCOUNTER 2023-03-17 09:02 | Outpatient (CLI) | payer BC ==
[~2023-03-17 09:02] MED LIST changes: +POTA-185 PO; -POTA10TA PO
== END 2023-03-17 09:25 ==
LOC: SLEEP 09:02
PROVIDERS: ATTEND Nurse Practitioner
DX: G47.9 Sleep disorder, unspecified (principal); I48.91 Unspecified atrial fibrillation
CPT/HCPCS: G0399

== ENCOUNTER → 2023-04-21 | Outpatient (CLI) | payer BC ==
--- NOTE | 2023-04-21 10:54 | Diagnostic Imaging Report ---
INDICATION: Routine screening. COMPARISON: 11/21/2021 and 11/17/2020. TECHNIQUE: 2D and 3D bilateral screening mammography was performed with CAD. FINDINGS: Scattered fibroglandular densities are identified bilaterally. A cardiac loop recorder overlies the medial left breast tissues. The parenchymal pattern is stable. No mass or malignant-appearing microcalcifications are seen. The axillae are unremarkable. IMPRESSION: No mammographic features suspicious for malignancy are identified. ACR BI-RADS Category 1: Negative. Result letter will be mailed to the patient. Note: At least 10% of breast cancer is not imaged by mammography. Dictated by: Dictated on workstation # [id number]
== END ==
LOC: RAD 08:00
PROVIDERS: ATTEND Obstetrics & Gynecology
DX: Z12.31 Encounter for screening mammogram for malignant neoplasm of breast (principal)
CPT/HCPCS: 77063; 77067